=== PATIENT | female | born 1975 | race Caucasian/White ===

== ENCOUNTER 2023-06-29 12:10 | Outpatient (REF) | payer BC, SELFPAY | END 2023-06-29 12:11 | disposition home or self-care (01) | LOC: HO.LNP 12:10 | PROVIDERS: Visit Provider Nurse Practitioner Primary Care | DX: Z13.89 Encounter for screening for other disorder (principal) | CPT/HCPCS: 0241U ==

== ENCOUNTER 2023-06-29 15:40 | Outpatient (AMB) | payer BC, SELFPAY ==
--- NOTE | 2023-06-29 15:46 | MHC.OFFWIV ---
Intake Vital Signs 06/29/23 15:48 Height 5 ft 7 in Weight 135 lb BMI 21.1 BP 120/76 Blood Pressure Location Lt brachial Position Sitting Pulse 99 Pulse Source Pulse Oximeter Temp 103.0 F H Temp Source Oral Pulse Oximetry (%) 98 Oxygen Delivery Method Room Air Intake Visit Reasons: [employer] Sore throat, Difficulty Swallowing Intake Note: pt is here today for sore throat and difficulty swallowing started wednesday Patient Tobacco Use Status: Never used Tobacco Allergies No Known Allergies Allergy (Verified 06/29/23 15:52) Medication List - Last Reconciled 06/29/23 by THERESA Strong No Known Home Meds Do you need a note to return to daycare/school/sports/work: No HPI HPI Comments History of Present Illness Details Patient is a 48-year-old female in today for a sick visit. Patient has no significant past medical history. She states that she developed symptoms of headache, cough, sore throat, ear pain, runny nose, fever x2 days ago. She has been using [id number] Tylenol and Motrin with some affect. Denies sick contacts, denies recent travel. Patient denies dizziness, numbness, chest pain, shortness a breath, nausea, vomiting, diarrhea. Strep test in office negative, will obtain in office viral upper respiratory swab. [facility] Social History Patient Tobacco Use Status: Never used Tobacco Review of Systems Const All systems reviewed & are unremarkable except as noted in HPI and below Physical Exam Vital Signs: Last Vital Signs Temp 103.0 F H 06/29/23 15:48 Pulse 99 06/29/23 15:48 BP 120/76 06/29/23 15:48 Pulse Ox 98 06/29/23 15:48 Oxygen Delivery Method Room Air 06/29/23 15:48 BMI result Body Mass Index 21.1 Patient states she did not take Tylenol prior to the appointment because she did not want to mask how sick she was. Patient has been advised that she should take Tylenol and Motrin to help lower fever. Const Other: Appearance: Alert.? Oriented X3.? No acute distress.? Eyes: Pupils equal, round and reactive to light.? ENT: Pharynx normal.?TM intact, erythema and effusion bilaterally. Neck: Normal inspection.? Neck supple.?Full ROM. CVS: Normal heart rate and rhythm.? Pulses normal.? Respiratory: No respiratory distress.? Breath sounds normal.? Neuro: Oriented X 3.? No motor deficit.? No sensory deficit. CN 2-12 intact Assessment & Plan Assessment & Plan (1) Otitis media, unspecified, bilateral: Comment: Will give patient Augmentin, prednisone, benzonatate to be taken as directed. Patient has been educated on signs of worsening symptoms and when to report back to the walk-in clinic or when to present to the emergency room. Code(s): H66.93 - Otitis media, unspecified, bilateral Qualifiers: Otitis media type: unspecified Qualified Code(s): H66.93 - Otitis media, unspecified, bilateral Plan: Take your medications as prescribed. If you were prescribed antibiotics today, it is important that you take your medication to their entirety, do not skip any doses, do not finish them early. Follow-up with your primary care provider this week. Return to the emergency department with new or worsening symptoms. Such as fevers, chills, chest pain, shortness of breath, nausea, vomiting, dizziness, headache, vision changes, lethargy In case of emergency call 911 Plan Follow-up with PCP Orders: Orders SARS-CoV2/FLU/RSV Today J06.9 - Acute upper respiratory infection, unspecified Medications: New amoxicillin-pot clavulanate 875-125 mg 1 tab PO Q12H 14 tabs 0RF benzonatate 100 mg PO BID PRN 30 caps 0RF cough prednisone 20 mg PO BID 10 tabs 0RF benzocaine-menthol 15-2.6 mg (Cepacol Sore Throat (benzocaine-menthol)) 1 cheryl mucous membrane Q2-4H PRN 16 ea 0RF pain Coding Level of Care Code Est Pt Level 3 (16457) Diagnoses Bilateral otitis media, unspecified otitis media type H66.93 Otitis media type: unspecified Time Spent (min) 25
[2023-06-29 15:48] VITALS: BP 120/76; PULSE 99; TEMP 39.4; O2SAT 98; BMI 21.1
== END 2023-06-29 16:30 | disposition home or self-care (01) ==
PROVIDERS: Visit Provider Nurse Practitioner Primary Care
DX: H66.93 Otitis media, unspecified, bilateral (principal)
CPT/HCPCS: 99213